=== PATIENT | female | born 1975 | race Caucasian/White ===

== ENCOUNTER 2022-03-10 13:15 | Inpatient (IN) | payer OTHER ==
[2022-03-10] MEDS ORDERED: LOPERAMIDE HCL 2 MG CAPSULE PO PRN (13:45)
[2022-03-10] MEDS ORDERED: MAG HYDROX/AL HYDROX/SIMETH 30 ML UNIT-DOSE CUP PO PRN (13:45)
[2022-03-10] MEDS ORDERED: ACETAMINOPHEN 325 MG TABLET (FP) PO PRN (13:45)
[2022-03-10] MEDS ORDERED: MAGNESIUM HYDROX 2400MG/30ML ORAL SUSPENSION 30 ML CUP PO PRN (13:45)
[2022-03-10] MEDS ORDERED: methaDONE HCL 10 MG TABLET (FOR DETOX USE ONLY) PO ONE (13:45)
[2022-03-10] MEDS ORDERED: DICYCLOMINE HCL 10 MG CAPSULE PO PRN (13:45)
[2022-03-10] MEDS ORDERED: MAGNESIUM CITRATE 300 ML BOTTLE PO PRN (13:45)
[2022-03-10] MEDS ORDERED: BISMUTH SUBSALICYLATE 524 MG/30 ML PO PRN (13:45)
[2022-03-10] MEDS ORDERED: ONDANSETRON *ODT* 4 MG TABLET SL PRN (13:45)
[2022-03-10] MEDS ORDERED: BENZOCAINE/MENTHOL (CHLORASEPTIC ) LOZENGE MM PRN (13:45)
[2022-03-10] MEDS ORDERED: IBUPROFEN 400 MG TABLET (FP) PO PRN (13:45)
[2022-03-10] MEDS ORDERED: ALBUTEROL SO4 HFA INHALER IH PRN (13:47)
[2022-03-10 15:05] VITALS: BMI 29.2
[2022-03-10] MEDS: hydrOXYzine PAMOATE 25 MG CAPSULE (FP) PO SCH ×3 (15:38→22:21)
[2022-03-10] MEDS: METHOCARBAMOL 500 MG TABLET PO PRN (15:38)
[2022-03-10] MEDS: NICOTINE 10 MG CARTRIDGE (INHALER) IH PRN ×2 (17:48→22:21)
[2022-03-10] MEDS: cloNIDine HCL 0.1 MG TABLET PO PRN ×2 (17:48→22:22)
[2022-03-10] MEDS ORDERED: MELATONIN 5 MG TABLETS PO SCH (22:00)
[2022-03-10] MEDS: THIAMINE HCL 100 MG TABLET (FP) PO SCH (22:21)
[2022-03-11] MEDS: METHOCARBAMOL 500 MG TABLET PO PRN ×2 (03:23→17:22)
[2022-03-11] MEDS: hydrOXYzine PAMOATE 25 MG CAPSULE (FP) PO SCH ×5 (06:18→22:25)
[2022-03-11] MEDS: PRENATAL VITAMINS W/ FOLIC ACID TABLET (FP) PO SCH (10:21)
[2022-03-11 12:44] LABS: ALBUMIN 3.1 g/dl (3.4-5.0); BLOOD UREA NITROGEN 12.6 mg/dL (7-18); CALCIUM 8.9 mg/dL (8.5-10.1)
[2022-03-11 12:47] LABS: CREATININE 0.9 mg/dL (0.55-1.3)
[2022-03-11 12:48] LABS: HEMATOCRIT 31.6 % (32.4-45.2); HEMOGLOBIN 10.2 GM/dL (10.7-15.3); MCH 25.3 pg (25.7-33.7); MCHC 32.1 g/dl (32.0-36.0); MEAN CELL VOLUME 78.7 fl (80-96); MEAN PLT VOLUME 10.9 fl (7.5-11.1); PLATELET COUNT 205 10^3/uL (134-434); RBC 4.02 M/mm3 (3.60-5.2); RDW 15.2 % (11.6-15.6); WHITE BLOOD COUNT 5.1 K/mm3 (4.0-10.0)
[2022-03-11 12:49] LABS: BILIRUBIN,TOTAL 0.2 mg/dL (0.2-1); TOT PROT 6.7 g/dl (6.4-8.2)
[2022-03-11] MEDS: NICOTINE 10 MG CARTRIDGE (INHALER) IH PRN (14:05)
[2022-03-11] MEDS: cloNIDine HCL 0.1 MG TABLET PO PRN ×2 (17:22→22:25)
[2022-03-11] MEDS: QUEtiapine FUMARATE 400 MG TABLET PO SCH (22:25)
[2022-03-11] MEDS: THIAMINE HCL 100 MG TABLET (FP) PO SCH (22:25)
[2022-03-12] MEDS: hydrOXYzine PAMOATE 25 MG CAPSULE (FP) PO SCH ×5 (05:34→22:09)
[2022-03-12] MEDS: IBUPROFEN 600 MG TABLET (FP) PO PRN (05:34)
[2022-03-12] MEDS ORDERED: methaDONE HCL 10 MG TABLET (FOR DETOX USE ONLY) PO ONE (10:00)
[2022-03-12] MEDS: PRENATAL VITAMINS W/ FOLIC ACID TABLET (FP) PO SCH (10:30)
[2022-03-12] MEDS: NICOTINE 10 MG CARTRIDGE (INHALER) IH PRN (10:33)
[2022-03-12] MEDS: QUEtiapine FUMARATE 400 MG TABLET PO SCH (22:09)
[2022-03-12] MEDS: THIAMINE HCL 100 MG TABLET (FP) PO SCH (22:09)
[2022-03-12] MEDS: ACETAMINOPHEN 325 MG TABLET (FP) PO PRN (22:10)
[2022-03-13] MEDS: hydrOXYzine PAMOATE 25 MG CAPSULE (FP) PO SCH ×5 (05:56→22:14)
[2022-03-13] MEDS: METHOCARBAMOL 500 MG TABLET PO PRN ×2 (05:56→17:57)
[2022-03-13] MEDS: ACETAMINOPHEN 325 MG TABLET (FP) PO PRN (05:56)
[2022-03-13] MEDS: IBUPROFEN 600 MG TABLET (FP) PO PRN ×2 (10:42→17:57)
[2022-03-13] MEDS: PRENATAL VITAMINS W/ FOLIC ACID TABLET (FP) PO SCH (10:43)
[2022-03-13] MEDS: THIAMINE HCL 100 MG TABLET (FP) PO SCH (22:14)
[2022-03-13] MEDS: QUEtiapine FUMARATE 400 MG TABLET PO SCH (22:14)
[2022-03-13] MEDS: NICOTINE 10 MG CARTRIDGE (INHALER) IH PRN (22:15)
[2022-03-14] MEDS: ACETAMINOPHEN 325 MG TABLET (FP) PO PRN (05:56)
[2022-03-14] MEDS: hydrOXYzine PAMOATE 25 MG CAPSULE (FP) PO SCH ×5 (05:56→22:28)
[2022-03-14 06:34] VITALS: RESP 18
[2022-03-14] MEDS: IBUPROFEN 600 MG TABLET (FP) PO PRN (09:04)
[2022-03-14] MEDS ORDERED: methaDONE HCL 10 MG TABLET (FOR DETOX USE ONLY) PO ONE (10:00)
[2022-03-14] MEDS: PRENATAL VITAMINS W/ FOLIC ACID TABLET (FP) PO SCH (10:38)
[2022-03-14] MEDS ORDERED: INSULIN (NOVOLOG) ASPART 100 UNITS/ML 10ML VIAL ONE (16:51)
[2022-03-14] MEDS: METHOCARBAMOL 500 MG TABLET PO PRN (17:09)
[2022-03-14] MEDS: NICOTINE 10 MG CARTRIDGE (INHALER) IH PRN (17:13)
[2022-03-14] MEDS: QUEtiapine FUMARATE 400 MG TABLET PO SCH (22:27)
[2022-03-14] MEDS: THIAMINE HCL 100 MG TABLET (FP) PO SCH (22:28)
[2022-03-15] MEDS: hydrOXYzine PAMOATE 25 MG CAPSULE (FP) PO SCH ×2 (05:43→10:56)
[2022-03-15] MEDS: NICOTINE 10 MG CARTRIDGE (INHALER) IH PRN (05:48)
[2022-03-15 06:25] VITALS: TEMP 97.3
[2022-03-15 09:59] VITALS: BP 117/70; PULSE 104
[2022-03-15] MEDS: PRENATAL VITAMINS W/ FOLIC ACID TABLET (FP) PO SCH (10:56)
== END 2022-03-15 11:50 | disposition home or self-care (01) | DRG 773 ==
LOC: YASAS 13:15 → Y6N 14:04
PROVIDERS: ADMIT Allergy & Immunology; ATTEND Surgery
PROC: HZ2ZZZZ Detoxification Services for Substance Abuse Treatment (ICD-10-PCS; principal; 2022-03-10)
DX: F11.23 Opioid dependence with withdrawal (principal); F14.20 Cocaine dependence, uncomplicated; F19.282 Other psychoactive substance dependence with psychoactive substance-induced sleep disorder; F19.24 Other psychoactive substance dependence with psychoactive substance-induced mood disorder; F25.9 Schizoaffective disorder, unspecified; J45.909 Unspecified asthma, uncomplicated; K76.0 Fatty (change of) liver, not elsewhere classified; M54.50 Low back pain, unspecified; G89.29 Other chronic pain; Z62.810 Personal history of physical and sexual abuse in childhood; Z91.410 Personal history of adult physical and sexual abuse; Z96.652 Presence of left artificial knee joint; Z28.310 Unvaccinated for COVID-19; Z28.21 Immunization not carried out because of patient refusal
CPT/HCPCS: 36415; 80053; 81025; 85027; 86780; C9803-CS; U0003; U0005

== ENCOUNTER 2023-06-25 11:17 | Inpatient (IN) | payer OTHER ==
[2023-06-25 11:49] VITALS: BMI 35.6
[2023-06-25] MEDS ORDERED: MAG HYDROX/AL HYDROX/SIMETH 30 ML UNIT-DOSE CUP PO PRN (13:01)
[2023-06-25] MEDS ORDERED: BISMUTH SUBSALICYLATE 524 MG/30 ML PO PRN (13:01)
[2023-06-25] MEDS ORDERED: BENZONATATE 200 MG CAPSULE PO PRN (13:01)
[2023-06-25] MEDS ORDERED: POLYETHYLENE GLYCOL (HEALTHYLAX) 3350 17 GM PACKET PO PRN (13:01)
[2023-06-25] MEDS ORDERED: ONDANSETRON *ODT* 4 MG TABLET SL PRN (13:01)
[2023-06-25] MEDS ORDERED: IBUPROFEN 400 MG TABLET (FP) PO PRN (13:01)
[2023-06-25] MEDS ORDERED: LOPERAMIDE HCL 2 MG CAPSULE PO PRN (13:01)
[2023-06-25] MEDS ORDERED: BENZOCAINE/MENTHOL (CHLORASEPTIC ) LOZENGE MM PRN (13:01)
[2023-06-25] MEDS ORDERED: ACETAMINOPHEN 325 MG TABLET (FP) PO PRN (13:01)
[2023-06-25] MEDS ORDERED: NALOXONE HCL 0.4 MG/ML VIAL IM PRN (13:01)
[2023-06-25] MEDS ORDERED: NALOXONE HCL (KLOXXADO) 8 MG SPRAY NS PRN (13:01)
[2023-06-25] MEDS ORDERED: MAGNESIUM HYDROX 2400MG/30ML ORAL SUSPENSION 30 ML CUP PO PRN (13:01)
[2023-06-25] MEDS ORDERED: guaiFENesin 600 MG TABLET.ER (FP) PO PRN (13:01)
[2023-06-25] MEDS ORDERED: cloNIDine HCL 0.1 MG TABLET PO PRN (13:05)
[2023-06-25] MEDS ORDERED: ALBUTEROL SO4 HFA INHALER IH PRN (13:06)
[2023-06-25] MEDS ORDERED: methaDONE HCL 10 MG TABLET (FOR DETOX USE ONLY) PO ONE (14:15)
[2023-06-25] MEDS ORDERED: methaDONE HCL 10 MG TABLET (FOR DETOX USE ONLY) ONE (14:16)
[2023-06-25] MEDS ORDERED: IBUPROFEN 600 MG TABLET (FP) PO ONE (14:16)
[2023-06-25] MEDS: IBUPROFEN 600 MG TABLET (FP) PO PRN (14:27)
[2023-06-25] MEDS: MELATONIN 5 MG TABLETS PO SCH (22:12)
[2023-06-25] MEDS: THIAMINE HCL 100 MG TABLET (FP) PO SCH (22:13)
[2023-06-25] MEDS: METHOCARBAMOL 500 MG TABLET PO PRN (22:14)
[2023-06-26] MEDS: hydrOXYzine PAMOATE 25 MG CAPSULE (FP) PO PRN (06:04)
[2023-06-26] MEDS: PRENATAL VITAMINS W/ FOLIC ACID TABLET (FP) PO SCH (10:13)
[2023-06-26] MEDS: METHOCARBAMOL 500 MG TABLET PO PRN (10:13)
[2023-06-26] MEDS: THIAMINE HCL 100 MG TABLET (FP) PO SCH (22:01)
[2023-06-26] MEDS: QUEtiapine FUMARATE 400 MG TABLET PO SCH (22:01)
[2023-06-26] MEDS: MELATONIN 5 MG TABLETS PO SCH (22:01)
[2023-06-27] MEDS ORDERED: methaDONE HCL 10 MG TABLET (FOR DETOX USE ONLY) PO ONE (10:00)
[2023-06-27] MEDS: PRENATAL VITAMINS W/ FOLIC ACID TABLET (FP) PO SCH (10:35)
[2023-06-27] MEDS: METHOCARBAMOL 500 MG TABLET PO PRN (10:35)
[2023-06-27] MEDS: IBUPROFEN 600 MG TABLET (FP) PO PRN (10:35)
[2023-06-27] MEDS: hydrOXYzine PAMOATE 25 MG CAPSULE (FP) PO PRN ×2 (14:12→22:05)
[2023-06-27] MEDS: THIAMINE HCL 100 MG TABLET (FP) PO SCH (22:06)
[2023-06-27] MEDS: QUEtiapine FUMARATE 400 MG TABLET PO SCH (22:06)
[2023-06-27] MEDS: MELATONIN 5 MG TABLETS PO SCH (22:07)
[2023-06-28] MEDS: PRENATAL VITAMINS W/ FOLIC ACID TABLET (FP) PO SCH (09:24)
[2023-06-28] MEDS: IBUPROFEN 600 MG TABLET (FP) PO PRN ×2 (09:25→22:14)
[2023-06-28] MEDS: METHOCARBAMOL 500 MG TABLET PO PRN ×2 (09:25→19:47)
[2023-06-28] MEDS: hydrOXYzine PAMOATE 25 MG CAPSULE (FP) PO PRN ×2 (14:09→22:15)
[2023-06-28] MEDS: THIAMINE HCL 100 MG TABLET (FP) PO SCH (22:13)
[2023-06-28] MEDS: MELATONIN 5 MG TABLETS PO SCH (22:13)
[2023-06-28] MEDS: QUEtiapine FUMARATE 400 MG TABLET PO SCH (22:13)
[2023-06-29] MEDS ORDERED: methaDONE HCL 10 MG TABLET (FOR DETOX USE ONLY) PO ONE (10:00)
[2023-06-29] MEDS: PRENATAL VITAMINS W/ FOLIC ACID TABLET (FP) PO SCH (10:14)
[2023-06-29] MEDS: hydrOXYzine PAMOATE 25 MG CAPSULE (FP) PO PRN ×2 (10:14→17:38)
[2023-06-29] MEDS: METHOCARBAMOL 500 MG TABLET PO PRN ×2 (10:14→22:11)
[2023-06-29] MEDS: IBUPROFEN 600 MG TABLET (FP) PO PRN (15:01)
[2023-06-29] MEDS ORDERED: ASPIRIN 325 MG TABLET PO ONE (17:10)
[2023-06-29] MEDS ORDERED: ASPIRIN 81 MG CHEWABLE TABLETS PO ONE (17:31)
[2023-06-29] MEDS: QUEtiapine FUMARATE 400 MG TABLET PO SCH (22:11)
[2023-06-29] MEDS: MELATONIN 5 MG TABLETS PO SCH (22:11)
[2023-06-29] MEDS: THIAMINE HCL 100 MG TABLET (FP) PO SCH (22:11)
[2023-06-30] MEDS: IBUPROFEN 600 MG TABLET (FP) PO PRN (08:39)
[2023-06-30] MEDS: hydrOXYzine PAMOATE 25 MG CAPSULE (FP) PO PRN ×2 (08:39→10:40)
[2023-06-30 09:15] VITALS: BP 93/63; PULSE 85; RESP 16; TEMP 98.2
[2023-06-30] MEDS: PRENATAL VITAMINS W/ FOLIC ACID TABLET (FP) PO SCH (10:39)
== END 2023-06-30 12:20 | disposition home or self-care (01) | DRG 773 ==
LOC: YASAS 11:17 → Y3N 14:22
PROVIDERS: ADMIT Allergy & Immunology; ATTEND Surgery
PROC: HZ2ZZZZ Detoxification Services for Substance Abuse Treatment (ICD-10-PCS; principal; 2023-06-25)
DX: F11.23 Opioid dependence with withdrawal (principal); F14.20 Cocaine dependence, uncomplicated; F17.210 Nicotine dependence, cigarettes, uncomplicated; F31.9 Bipolar disorder, unspecified; I10 Essential (primary) hypertension; J45.20 Mild intermittent asthma, uncomplicated; E78.5 Hyperlipidemia, unspecified; G47.00 Insomnia, unspecified; R07.9 Chest pain, unspecified; R56.9 Unspecified convulsions; Z62.810 Personal history of physical and sexual abuse in childhood; Z91.410 Personal history of adult physical and sexual abuse
CPT/HCPCS: 81025; 87635; 93005; 93010